=== PATIENT | female | born 1975 | race Two or more races ===

== ENCOUNTER 2016-10-28 14:30 | Emergency (ER) | payer MEDICAID ==
[2016-10-28 15:50] LABS: Basophils # (auto) 0 uL; Basophils % (auto) 0.4 % (0.0-2.0); CONDITION Y; Eosinophils # (auto) 0.2 uL; Eosinophils % (auto) 1.8 % (0.0-7.0); Hematocrit 36.5 % (36.0-46.0); Hemoglobin 12.5 g/dL (12.2-16.2); Lymphocytes # (auto) 2.7 uL; Lymphocytes % (auto) 29.5 % (10.0-50.0); Mean Corpuscular Hemoglobin 29.5 pg (28.0-32.0); Mean Corpuscular Hgb Conc. 34.3 g/dL (32.0-36.0); Mean Corpuscular Volume 85.9 fL (80.0-100.0); Mean Platelet Volume 9.3 fL (7.4-10.4); Monocytes # (auto) 0.5 uL; Monocytes % (auto) 5.4 % (0.0-12.0); Neutrophils # (auto) 5.7 uL; Neutrophils % (auto) 62.9 % (37.0-80.0); Platelet Count (auto) 313 10^3/uL (140-450); Red Cell Distribution Width 13.9 % (11.6-16.0)
[2016-10-28 16:04] LABS: Albumin 3.7 g/dL (3.4-5.0); BUN/Creatinine Ratio 22.8; Bilirubin, Total 0.5 mg/dL (0.2-1.0); Calcium 8.3 mg/dL (8.5-10.1); Potassium 3.6 mmol/L (3.5-5.1); Total Protein 7.2 g/dL (6.4-8.2)
[2016-10-28 22:31] LABS: Urine Bilirubin Negative (Negative); Urine Blood 1+ /uL (Negative); Urine Color Yellow (Yellow); Urine Glucose Normal (Normal); Urine Ketone Negative (Negative); Urine Mucus FEW (None Seen); Urine Nitrite Negative (Negative); Urine RBC <1 /hpf (0 - 4); Urine Squamous Epithelial Cell FEW /hpf (<5); Urine Urobilinogen Normal (Negative); Urine pH 5.5 (5.0-8.0)
[2016-10-28 22:50] VITALS: BP 108/60
== END 2016-10-28 23:06 | disposition home or self-care (01) ==
LOC: ER 14:30
DX: N93.8 Other specified abnormal uterine and vaginal bleeding (principal); R53.1 Weakness
CPT/HCPCS: 36415; 80053; 81001; 84702; 85025; 86850; 86900; 86901